=== PATIENT | male | born 1985 | race African-American/Black ===

== ENCOUNTER 2017-02-14 11:05 | Emergency (ER) | payer OTHER ==
[~2017-02-14] VITALS: Ht 185.4 cm; Wt 104.5 kg
[2017-02-14 11:06] VITALS: BP 118/62
[2017-02-14] MEDS ORDERED: HALO1 PO (11:16)
[2017-02-14 11:45] LABS: BASOPHILS % (AUTO) 0.9 % (0.0-2.0); EOSINOPHILS % (AUTO) 2.6 % (1.0-6.0); HEMATOCRIT 46.2 % (41-53); HEMOGLOBIN 15.7 g/dL (13.5-17.5); LYMPHOCYTES # (AUTO) 0.7 K/uL (1.0-4.8); MEAN CORPUSCULAR HEMOGLOBIN 27.6 pg (26.0-34.0); MEAN CORPUSCULAR VOLUME 81 fL (80-100); MONOCYTES # (AUTO) 0.5 K/uL (0.1-1.0); MONOCYTES % (AUTO) 12.2 % (2.0-9.0); NEUTROPHILS # (AUTO) 2.5 K/uL (1.8-7.7); NEUTROPHILS % (AUTO) 65.3 % (40.0-70.0); PLATELET COUNT (AUTO) 181 K/uL (150-450); RED BLOOD CELL COUNT(AUTO) 5.69 MIL/uL (4.50-5.90); RED CELL DISTRIBUTION WIDTH 13.4 % (11.5-14.5); WHITE BLOOD COUNT (AUTO) 3.9 K/uL (4.5-11.0)
[2017-02-14] MEDS ORDERED: IBUPROFEN 600 MG TABLET PO ONE (11:45)
[2017-02-14 11:51] LABS: ANION GAP 10 mmol/L (8-16); CALCIUM, TOTAL 9.5 mg/dL (8.8-10.5); CARBON DIOXIDE 29 mmol/L (22-29); CHLORIDE 102 mmol/L (98-107); CREATININE 1.42 mg/dL (0.60-1.30); GLOMERULAR FILTR. RATE CALC > 60 mL/min (>60); POTASSIUM 4.1 mmol/L (3.5-5.1); SODIUM SERUM 141 mmol/L (136-145); UREA NITROGEN, BLOOD 12 mg/dL (7-18)
[2017-02-14 11:57] LABS: ALANINE AMINOTRANSFERASE 35 U/L (12-78); ALBUMIN 4.3 g/dL (3.4-5.0); ASPARTATE AMINOTRANSFERASE 25 U/L (15-37); BILIRUBIN,TOTAL 0.5 mg/dL (0.1-1.0)
== END 2017-02-14 12:43 | disposition home or self-care (01) ==
LOC: EMS 11:06
DX: F29 Unspecified psychosis not due to a substance or known physiological condition (principal); R51 Headache
CPT/HCPCS: 36415; 80053; 80307; 85025; 99284; G0480

== ENCOUNTER 2018-01-29 13:31 | Emergency (ER) | payer OTHER ==
[~2018-01-29] VITALS: Ht 185.4 cm; Wt 109.5 kg
[~2018-01-29 13:31] MED LIST: HALO1 PO
[2018-01-29 14:46] VITALS: BP 127/70
== END 2018-01-29 15:12 | disposition home or self-care (01) ==
LOC: EMS 13:32
DX: F43.20 Adjustment disorder, unspecified (principal); F17.210 Nicotine dependence, cigarettes, uncomplicated
CPT/HCPCS: 99406